=== PATIENT | male | born 1975 | race Caucasian/White ===

== ENCOUNTER 2024-02-23 22:02 | Emergency (ER) | payer MEDICAID, SELFPAY ==
--- NOTE | 2024-02-23 22:21 | ED_ITS ---
HPI - General Adult General Date Seen: 02/23/24 Chief complaint: Cough Stated complaint: whooping cough Time Seen by Provider: 02/23/24 22:13 History of Present Illness HPI narrative: 48-year-old generally healthy male presenting to the ER today for a nearly intra ctable cough. He has been ill with a cough for about a week. For the 1st couple of days a cough he did have some fevers and chills. Since then the fevers and chills and been gone but the cough has persisted. He is not short of breath. Cough is always dry and nonproductive. Cough is been nearly incessant for the past couple of days and he has not been able to sleep. Tonight he had an episode of posttussive emesis because he was coughing so hard. He has not have a headache. No earache. No nasal congestion or drainage. He does have a feeling like he has a tickle in the back of his throat he just cannot get it to go away. Other than posttussive emesis no other vomiting. He has no history asthma or emphysema. He is a nonsmoker. No known sick exposures. His children are well. He went to the urgent care 2 days ago. He had a strep swab that was negative for strep. He was not checked for COVID or flu. He had a chest x-ray that was normal. He was told he had a probable viral illness. He was treated supportively with Tessalon. They also gave him a prescription for an albuterol inhaler. He has been using the albuterol inhaler and the Tessalon at home to try to help the cough but they are wholly ineffective. He came to the ER tonight because he needs further evaluation or treatment for the cough given its severity. He is concerned he may have whooping cough. Related Data Home Medications ?Medication ?Instructions ?Recorded ?Confirmed No Known Home Medications 10/13/22 10/13/22 Allergies Allergy/AdvReac Type Severity Reaction Status Date / Time No Known Drug Allergies Allergy Verified 10/13/22 11:[address] [facility] Medical History (Updated 02/23/24 @ 22:59 by Zaki Rivero MD) Puncture wound of finger of right hand ?S61.239A - Puncture wound without foreign body of unspecified finger without damage to nail, initial encounter (ICD-10) Surgical History (Updated 10/14/22 @ 09:12 by Mary Lou Pérez PA-C) History of open reduction and internal fixation (ORIF) procedure (04/25/10) ?Z98.890 - Other specified postprocedural states (ICD-10) Jaw fracture ?S02.609A - Fracture of mandible, unspecified, initial encounter for closed fracture (ICD-10) Social History (Updated 10/13/22 @ 11:17 by Jahaira Dominguez ~ [facility] [address], [facility] [address]) Smoking Status: Never smoker Do you use any of these nicotine containing products: None Second hand tobacco smoke exposure: No Exam Narrative: Exam Narrative: Constitutional: Appears well-developed and well-nourished. Alert. Conversant. Non toxic. HENT: Head: Atraumatic. Nose: Nose normal. Right ear: TM, canal, pinna, mastoid are normal. Left ear: TM, canal, pinna, mastoid, are normal. Mouth/Throat: Oral mucosa is clear and moist. no trismus. Patient does have erythema and a little bit of exudate on his uvula. . Tonsillar pillars and tonsils are normal and symmetric. Tonsils symmetric. No tonsillar enlargement, erythema, or exudate. Eyes: Conjunctivae normal. EOM normal. Pupils equal, round, and reactive to light. No scleral icterus. No subconjunctival hemorrhages. Neck: Normal range of motion. Neck supple. No tracheal deviation present. Cardiovascular: Normal rate, regular rhythm. No gallop. No friction rub. No murmur heard. Symmetric radial artery pulses Pulmonary/Chest: Nearly incessant dry hacking cough. He has difficulty conversing because he is coughing so much. No stridor. No respiratory distress. With effort he is able to cooperate with lung exam and he has clear lung ac throughout. No wheezes. No rales. No rhonchi . No tenderness. Musculoskeletal: RUE: Normal range of motion. No tenderness. No deformity LUE: Normal range of motion. No tenderness. No deformity RLE: Normal range of motion. No edema. No tenderness. No deformity LLE: Normal range of motion. No edema. No tenderness. No deformity Lymph: No cervical adenopathy. Neurological: Alert and oriented to person, place, and time. Normal strength. CN II-VII intact. No sensory deficit. GCS eye subscore is 4. GCS verbal subscore is 5. GCS motor subscore is 6. Normal coordination Skin: Skin is warm and dry. No rash noted. No pallor. Normal capillary refill. Psychiatric: Normal mood. Normal affect. Const: Vital Signs, click to edit/add: Vital Signs - 24 hr 02/23/24 22:41 Temperature 97.6 F Pulse Rate [Left P ulse Oximeter] 71 Respiratory Rate 24 Blood Pressure [Ri ght Upper Arm] 118/71 Pulse Oximetry 95 Oxygen Delivery Me thod Room Air Course Vital Signs Vital signs: Initial Vital Signs Temperature 97.6 F 02/23/24 22:41 Temperature Source Temporal Artery Scan 02/23/24 22:41 Pulse Rate 71 02/23/24 22:41 Respiratory Rate 24 02/23/24 22:41 Blood Pressure 118/71 02/23/24 22:41 Blood Pressure Mean 86 02/23/24 22:41 Blood Pressure Position Sitting 02/23/24 22:41 Pulse Oximetry 95 02/23/24 22:41 Oxygen Delivery Method Room Air 02/23/24 22:41 Vital Signs Temperature 97.6 F 02/23/24 22:41 Pulse Rate 71 02/23/24 22:41 Respiratory Rate 24 02/23/24 22:41 Blood Pressure 118/71 02/23/24 22:41 Pulse Oximetry 95 02/23/24 22:41 Oxygen Delivery Method Room Air 02/23/24 22:41 Temperature 97.6 F 02/23/24 22:41 Pulse Rate 71 02/23/24 22:41 Respiratory Rate 24 02/23/24 22:41 Blood Pressure 118/71 02/23/24 22:41 Pulse Oximetry 95 02/23/24 22:41 Oxygen Delivery Method Room Air 02/23/24 22:41 Medical Decision Making MDM Narrative Medical decision making narrative: This patient presents for evaluation of a dry hacking but unrelenting cough ongoing for the past week or so. He had already been seen in the urgent care and had a strep test that was negative and an x-ray that was normal. He has been on albuterol inhaler, but it is not helping. On my exam tonight he is not having any wheezing. I do not think the cough represents bronchiolitis of bronchospasm. He did at home test for coronavirus and it was negative. He has no known sick exposures. On my exam tonight he has a very frequent cough but lung sounds are actually clear. Given that he had normal chest x-ray 2 days ago and has clear lungs tonight will hold off on repeat x-ray given low likelihood of a focal consolidation. With the current outbreak upper tests in the upper [place], I am concerned about pertussis. Will send a pertussis nasal pharyngeal PCR. We will treat empirically and start the patient on Azithromycin tonight. On my exam he also has signs of possible uvulitis. I am not sure if this Rue truly represents an acute bacterial uvulitis or but simply uvular irritation because of all of his coughing. Nonetheless will put him on a course of amoxicillin the cover for uvulitis.. Would hold off on influenza or COVID swab tonight since there would note be no change in management. He is outside the window for Tamiflu or Paxlovid. There is no signs at this point of serious bacterial infection such as OM, RPA, epiglottitis, [employer], strep pharyngitis, p neumonia, sinusitis, meningitis, bacteremia, serious bacterial infection. There are no significant gastrointestinal symptoms at this point and no signs of dehydration. Close followup with primary care physician is indicated. Return to ED for fever > 103, protracted vomiting, confusion, or other worsening. Instymeds prescriptions for Azithromycin, amoxicillin, Cheratussin. Discussed sedation precautions with cough medicine. Discharge Plan Discharge Clinical Impression: Cough, Uvulitis Patient Disposition: Home, Self-Care Condition: Stable Instructions: Pertussis (ED), Uvulitis (ED), Acute Cough (ED) Additional Instructions: As we discussed, the test for pertussis is not back yet. However were going to treat you with an antibiotic to cover for pertussis any way. Azithromycin. The antibiotic is taken once daily for 5 days. If you have pertussis, will remain contagious until after you have taken the 5 days of antibiotics. You should stay home and not go to work until you complete your antibiotic therapy, or until the pertussis swab comes back negative. Your uvula also look swollen in the back of your throat. It not sure if this swollen because you have been coughing so much or because the uvula is infected. Will put you on another antibiotic, amoxicillin to treat for uvulitis. Use the Cheratussin if needed for cough. Be careful because it can cause dizziness and drowsiness. Return to the ER immediately if you have worsening cough, high fever, bloody cough, chest pain, trouble breathing, weakness, or any concerns. Prescriptions: No Action No Known Home Medications Stand Alone Forms: [facility] [employer] Info Instructions
[2024-02-23 22:41] VITALS: BP 118/71; PULSE 71; RESP 24; TEMP 36.4; O2SAT 95; BMI 28.7
[2024-02-27 04:06] LABS: B. pertussis/parapertus Source Not Provided; Bordetella parapertussis PCR Not Detected; Bordetella pertussis by PCR Not Detected
== END 2024-02-23 23:21 | disposition home or self-care (01) ==
LOC: ED 23:09
PROVIDERS: Emergency Provider Emergency Medicine
DX: R05.9 Cough, unspecified (principal); K12.2 Cellulitis and abscess of mouth
CPT/HCPCS: 36415; 99283